=== PATIENT | female | born 1975 | race Caucasian/White ===

== ENCOUNTER → 2020-07-28 | Outpatient (CLI) | payer BC | END | disposition home or self-care (01) | LOC: LABWHC1 15:28 | PROVIDERS: ATTEND Family Medicine | DX: Z20.822 Contact with and (suspected) exposure to COVID-19 (principal) | CPT/HCPCS: U0003; C9803 ==

== ENCOUNTER → 2021-07-19 | Outpatient (CLI) | payer BC ==
--- NOTE | 2021-07-19 08:40 | US ---
EXAMINATION TYPE: US pelvic complete DATE OF EXAM: 07/19/2021 COMPARISON: NONE CLINICAL HISTORY: R10.31 right lower quad pain. RLQ pain. IUD. TECHNIQUE: Transabdominal (TA). Transabdominal sonographic images of the pelvis were acquired Date of LMP: Unknown due to IUD, EXAM MEASUREMENTS: Uterus: 11.0 x 4.9 x 3.1 cm Endometrial Stripe: 0.3 cm Right Ovary: 3.3 x 2.4 x 2.3 cm Left Ovary: 2.9 x 2.2 x 2.1 cm 1. Uterus: Anteverted Heterogenous. Slightly enlarged in size. 2. Endometrium: IUD visualized within endometrial cavity 3. Right Ovary: cyst seen = 2.5 x 2.2 x 1.5 cm. This may be slightly complex. Follow-up is recommend ed. 4. Left Ovary: follicle seen 5. Bilateral Adnexa: wnl 6. Posterior cul-de-sac: no free fluid IMPRESSION: 1. Prominent uterus. IUD within the endometrial canal. 2. Right ovarian cyst follow-up exam following the next normal menstrual period or Follow up 6 weeks is recommended.
--- NOTE | 2021-07-19 08:42 | US ---
EXAMINATION TYPE: US abdomen complete DATE OF EXAM: 07/19/2021 COMPARISON: NONE CLINICAL HISTORY: R10.31 right lower quad pain. RLQ pain. GB removed. EXAM MEASUREMENTS: Liver Length: 14.2 cm CBD: 0.3 cm Spleen: 10.4 cm Right Kidney: 10.2 x 4.7 x 4.6 cm Left Kidney: 10.8 x 5.6 x 5.4 cm Pancreas: Limited visualization, obscured by overlying bowel gas Liver: wnl Gallbladder: Surgically absent Evidence for sonographic Mercado's sign: neg CBD: wnl Spleen: wnl Right Kidney: Inferior pole obscured by bowel gas Left Kidney: No hydronephrosis or masses seen Upper IVC: wnl Abd Aorta: Proximal and mid obscured by overlying bowel gas IMPRESSION: 1. Abdomen ultrasound as visualized appears unremarkable.
--- NOTE | 2021-07-30 10:04 | MM ---
Reason for exam: screening (asymptomatic). Last mammogram was performed 2 years and 2 months ago. History: Taking hormonal contraceptives for 9 years. Physical Findings: A clinical breast exam by your physician is recommended on an annual basis and results should be correlated with mammographic findings. MG Screening Mammo w CAD Bilateral CC and MLO view(s) were taken. Prior study comparison: May 27, 2019, mammogram, performed at [place]. December 08, 2017, mammogram, performed at [place]. There are scattered fibroglandular densities. Focal asymmetry inner upper right breast zone B. This finding is changed when compared with previous exams. ASSESSMENT: Incomplete: need additional imaging evaluation, BI-RAD 0 RECOMMENDATION: Special view mammogram of the right breast. If lesion persists on supplemental views, image directed ultrasound is recommended. [facility] will attempt to contact patient to return for supplemental views and ultrasound if indicated.
== END | disposition home or self-care (01) ==
LOC: RADUSWWP 07:09
PROVIDERS: ATTEND Family Medicine
DX: Z12.31 Encounter for screening mammogram for malignant neoplasm of breast (principal); N83.201 Unspecified ovarian cyst, right side; Z97.5 Presence of (intrauterine) contraceptive device
CPT/HCPCS: 76700; 76856; 77067

== ENCOUNTER → 2021-08-01 | Outpatient (CLI) | payer BC ==
--- NOTE | 2021-08-01 08:15 | MM ---
Reason for exam: additional evaluation requested from abnormal screening. Last mammogram was performed less than 1 month ago. History: Took hormonal contraceptives for 9 years. Physical Findings: Nurse did not find any significant physical abnormalities on exam. MG 3D Work Up W/Cad RT Spot compression CC, spot compression MLO, and LM view(s) were taken of the right breast. Prior study comparison: July 19, 2021, bilateral MG screening mammo w CAD. May 27, 2019, mammogram, performed at [place]. There is no discrete abnormality including area of concern. These results were verbally communicated with the patient and result sheet given to the patient on 08/01/21. ASSESSMENT: Probably benign, BI-RAD 3 RECOMMENDATION: Follow-up diagnostic mammogram of the right breast in 6 months.
== END | disposition home or self-care (01) ==
LOC: RADMAMWWP 06:55
PROVIDERS: ATTEND Family Medicine
DX: R92.8 Other abnormal and inconclusive findings on diagnostic imaging of breast (principal)
CPT/HCPCS: 77061; 77065

== ENCOUNTER → 2022-06-11 | Outpatient (CLI) | payer BC ==
--- NOTE | 2022-06-11 09:32 | CT ---
EXAMINATION TYPE: CT sinus wo con DATE OF EXAM: 06/11/2022 COMPARISON: HISTORY: chronic sinusitis CT DLP: [address] of the paranasal sinuses was performed in the axial and coronal planes. Bone and soft tissue settings are submitted. The paranasal sinuses demonstrate normal aeration and development. Mild mucoperiosteal thickening in the bases of the maxillary sinuses. Partial obstruction right ostio meatal unit with the left ostiomeatal unit remain patent. Mild nasal septal deviation from right to left. No bony destructive changes are seen within the field of view. IMPRESSION: Mild mucoperiosteal thickening in the bases of the maxillary sinuses. Partial obstruction right ostio meatal unit
== END | disposition home or self-care (01) ==
LOC: RADCTMAIN 08:51
PROVIDERS: ATTEND Otolaryngology
DX: J32.9 Chronic sinusitis, unspecified (principal); J34.89 Other specified disorders of nose and nasal sinuses
CPT/HCPCS: 70486

== ENCOUNTER → 2022-07-11 | Outpatient (CLI) | payer BC ==
--- NOTE | 2022-07-11 09:35 | MM ---
Reason for Exam: Follow-up at short interval from prior study. Last screening mammogram was performed 12 month(s) ago. Patient History: Menarche at age 12. First Full-Term at age 31. Patient has history of breast feeding. Currently using Hormonal Contraceptives, starting at age 37. Risk Values: Jenniffer 5 year model risk: 1.0%. NCI Lifetime model risk: 11.6%. Prior Study Comparison: 12/08/2017 Screening Mammogram, [place]. 05/27/2019 Screening Mammogram, [place]. 07/19/2021 Bilateral Screening Mammogram, [facility]. 08/01/2021 Right Diagnostic Mammogram, [facility]. Tissue Density: There are scattered fibroglandular densities. Findings: Analyzed By CAD. Pattern appears symmetrical and stable. No significant interval change is evident. Chronic nodularities in the outer right breast. Benign spherical calcifications within the right breast. Punctate calcifications are within the left breast. No significant interval change is evident. Overall Assessment: Benign, BI-RAD 2 Management: Screening Mammogram of both breasts in 1 year. A clinical breast exam by your physician is recommended on an annual basis and results should be correlated with mammographic findings. This exam should not preclude additional follow-up of suspicious palpable abnormalities. Results were given to the patient verbally at the time of exam. Electronically signed and approved by: Jose Enrique Lima D.O. Radiologis
== END | disposition home or self-care (01) ==
LOC: RADMAMWWP 09:00
PROVIDERS: ATTEND Family Medicine
DX: R92.8 Other abnormal and inconclusive findings on diagnostic imaging of breast (principal)
CPT/HCPCS: 77062; 77066

== ENCOUNTER → 2023-08-01 | Outpatient (CLI) | payer BC ==
--- NOTE | 2023-08-05 09:10 | MM ---
Reason for Exam: Screening (asymptomatic). Last mammogram was performed 1 year(s) and 1 month(s) ago. Patient History: Menarche at age 12. First Full-Term at age 31. Patient has history of breast feeding. Currently using Hormonal Contraceptives, starting at age 37. Risk Values: Jenniffer 5 year model risk: 1.0%. NCI Lifetime model risk: 11.4%. Prior Study Comparison: 07/19/2021 Bilateral Screening Mammogram, [facility]. 08/01/2021 Right Diagnostic Mammogram, [facility]. 07/11/2022 Bilateral MG 3D diag mammo w/cad [place], [facility]. Tissue Density: There are scattered fibroglandular densities. Findings: Analyzed By CAD. There is no suspicious group of microcalcifications or new suspicious mass. Overall Assessment: Negative, BI-RAD 1 Management: Screening Mammogram of both breasts in [address] [facility] will attempt to contact patient to return for supplemental views and ultrasound if indicated. Patient should continue monthly self-breast exams. A clinical breast exam by your physician is recommended on an annual basis. This exam should not preclude additional follow-up of suspicious palpable abnormalities. Note on Jenniffer scores and lifetime risk: 1. A Jenniffer score greater than 3% is considered moderate risk. If this is the case, consider specialist referral to assess eligibility for a risk reducing agent. 2. If overall lifetime risk for the development of breast cancer is 20% or higher, the patient may qualify for future screening with alternating mammogram and breast MRI. Electronically signed and approved by: Nahum Hunter DO
== END | disposition home or self-care (01) ==
LOC: RADMAMWWP 15:31
PROVIDERS: ATTEND Obstetrics & Gynecology
DX: Z12.31 Encounter for screening mammogram for malignant neoplasm of breast (principal)
CPT/HCPCS: 77063; 77067

== ENCOUNTER → 2024-09-01 | Outpatient (CLI) | payer BC ==
--- NOTE | 2024-09-01 11:47 | MM ---
Reason for Exam: Screening (asymptomatic). Last mammogram was performed 1 year(s) and 1 month(s) ago. Patient History: Menarche at age 12. First Full-Term at age 31. Patient has history of breast feeding. Currently using Hormonal Contraceptives, starting at age 37. Risk Values: Jenniffer 5 year model risk: 1.1%. NCI Lifetime model risk: 11.3%. Prior Study Comparison: 08/01/2021 Right Diagnostic Mammogram, [facility]. 07/11/2022 Bilateral MG 3D diag mammo w/cad [place], [facility]. 08/01/2023 Bilateral MG 3D screening mammo w/cad, [facility]. Tissue Density: There are scattered areas of fibroglandular density. Findings: Analyzed By CAD. There is no suspicious group of microcalcifications or new suspicious mass in either breast. Overall Assessment: Negative, BI-RAD 1 Management: Screening Mammogram of both breasts in 1 year. . Patient should continue monthly self-breast exams. A clinical breast exam by your physician is recommended on an annual basis. This exam should not preclude additional follow-up of suspicious palpable abnormalities. Note on Jenniffer scores and lifetime risk: 1. A Jenniffer score greater than 3% is considered moderate risk. If this is the case, consider specialist referral to assess eligibility for a risk reducing agent. 2. If overall lifetime risk for the development of breast cancer is 20% or higher, the patient may qualify for future screening with alternating mammogram and breast MRI. [facility], , 09/01/2024 11:44 AM. Electronically signed and approved by: Julian Cline M.D. Radiologis
== END | disposition home or self-care (01) ==
LOC: RADMAMWWP 11:21
PROVIDERS: ATTEND Family Medicine
DX: Z12.31 Encounter for screening mammogram for malignant neoplasm of breast (principal); R92.323 Mammographic fibroglandular density, bilateral breasts; Z79.3 Long term (current) use of hormonal contraceptives
CPT/HCPCS: 77063; 77067